=== PATIENT | male | born 1995 | race American Indian/Alaskan Native ===

== ENCOUNTER 2021-08-29 23:50 | Emergency (ER) | payer SELFPAY ==
--- NOTE | 2021-08-30 08:10 | Emergency Department Report ---
ED Recheck HPI - General Chief Complaint: Extremity Problem,Nontraumatic Stated Complaint: LT ARM CHECK Time Seen by Provider: 08/30/21 08:06 Source: patient Mode of arrival: Ambulatory Limitations: No Limitations - History of Present Illness Initial Comments: Patient comes to the emergency room because he has attempted to donate plasma and they will not allow him because when he donated in the past his left arm swelled up. He states that they want a note that he can donate plasma. Patient states he knows that you do not do this in the emergency room, he is not from here but this is where they told him to come. He has a radial and ulnar pulses intact. His hand is warm. He has full range of motion. Sensation intact. MD Complaint: wound re-check ED Review of Systems ROS: Stated complaint: LT ARM CHECK Other details as noted in HPI Comment: All other systems reviewed and negative ED Past Medical Hx - Past Medical History Previous Medical History?: No - Surgical History Past Surgical History?: No - Family History Family history: no significant - Social History Smoking Status: Never Smoker Substance Use Type: Alcohol ED Physical Exam - General Limitations: No Limitations General appearance: alert, in no apparent distress - Head Head exam: Present: atraumatic, normocephalic - Eye Eye exam: Present: normal appearance - ENT ENT exam: Present: mucous membranes moist - Neck Neck exam: Present: normal inspection - Respiratory Respiratory exam: Present: normal lung sounds bilaterally. Absent: respiratory distress - Cardiovascular Cardiovascular Exam: Present: regular rate, normal rhythm. Absent: systolic murmur, diastolic murmur, rubs, gallop - GI/Abdominal GI/Abdominal exam: Present: soft, normal bowel sounds - Rectal Rectal exam: Present: deferred - Extremities Exam Extremities exam: Present: normal inspection - Back Exam Back exam: Present: normal inspection - Neurological Exam Neurological exam: Present: alert, oriented X3 - Psychiatric Psychiatric exam: Present: normal affect, normal mood - Skin Skin exam: Present: warm, dry, intact, normal color. Absent: rash ED Course Vital Signs 08/30/21 00:33 Temperature 98.4 F Pulse Rate 54 L Respiratory 18 Rate Blood Pressure 123/54 O2 Sat by Pulse 98 Oximetry ED Recheck MDM - Core Measures Measure Exclusions: not indicated - Differential Diagnosis Wound Recheck - Medical Decision Making From the emergency room perspective there is no suspicion of infection, DVT or other pathology involving the patient's left upper extremity. I explained to the patient that I am not sure why [facility] sent him. And if they were concerned that he would need to see a vascular doctor. Vital Signs 08/30/21 00:33 Temperature 98.4 F Pulse Rate 54 L Respiratory 18 Rate Blood Pressure 123/54 O2 Sat by Pulse 98 Oximetry Patient discharged from ER with discharge plan of care including diet, activity, medications and follow-up. He has been given a referral to primary care for follow-up. Critical care attestation.: If time is entered above; I have spent that time in minutes in the direct care of this critically ill patient, excluding procedure time. ED Disposition Clinical Impression: Wellness examination Disposition: HOME / SELF CARE / HOMELESS Is pt being admited?: No Does the pt Need Aspirin: No Condition: Stable Additional Instructions: From an emergency room perspective the patient has no deficit of the left upper extremity. He is neurovascularly intact. His distal circulation is intact. Sensation intact. Rapid cap refill. He has full range of motion of his elbow, wrist and hand. Referrals: ERICH UGARTE MD [Staff Physician] - 3-5 Days Time of Disposition: 08:08
[2021-08-30 09:11] VITALS: BP 121/96
== END 2021-08-30 09:00 | disposition home or self-care (01) ==
LOC: ED 23:50
DX: Z00.00 Encounter for general adult medical examination without abnormal findings (principal); Z72.89 Other problems related to lifestyle; Z79.899 Other long term (current) drug therapy
CPT/HCPCS: 99282